=== PATIENT | male | born 1985 | race Caucasian/White ===

== ENCOUNTER 2020-09-21 14:11 | Emergency (ER) | payer MEDICAID ==
[~2020-09-21] VITALS: Ht 170.2 cm; Wt 86.2 kg
[2020-09-21 14:19] VITALS: BP 155/91
--- NOTE | 2020-09-21 14:24 | NUR ---
PATIENT AMBULATED TO BED 3 WITH STEADY GAIT.
--- NOTE | 2020-09-21 14:33 | NUR ---
34 Y/O MALE COMING FROM HOME WITH C/C RIGHT SIDED CHEST PAIN. PT PRESENTS A&OX4, ESTONIAN SPEAKING. PT STATES 7/10 PAIN TO HIS RIGHT CHEST AREA THAT BEGAN AT 0900 ON 09/21/20. PT STATES HE DID NOT TAKE ANY MEDICATION PRIOR TO ER VISIT. PT STATES ASSOCIATED SHORTNESS OF BREATH. PT DENIES DIZZINESS, HEADACHE, BLURRY VISION, RINGING OF THE EARS, ABDOMINAL PAIN, FEVER/CHILLS, COLD-LIKE SYMPTOMS. PT PLACED ONTO WARP HANGER. LUNG SOUNDS CTA, RESPIRATIONS EVEN/UNLABORED. VITAL SIGNS 153/77, HR 87, RR 18, SPO2 99% ON ROOM AIR. BED LOCKED IN LOWEST POSITION, SIDE RAILS X1. PMH/MEDS: DENIES NKA
[2020-09-21] MEDS ORDERED: KETOROLAC 60 MG/2 ML VIAL IM ONE (14:55)
--- NOTE | 2020-09-21 15:07 | NUR ---
EKG AT BEDSIDE
--- NOTE | 2020-09-21 15:12 | NUR ---
XRAY AT BEDSIDE
--- NOTE | 2020-09-21 15:39 | NUR ---
PT PRESENTS EYES OPEN IN SEMI-FOWLERS POSITION, POSITION OF COMFORT. PT STATES PAIN 2/10 AT THIS TIME. 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 RESP EVEN/UNLABORED. EQUAL CHEST RISE AND FALL. BED LOCKED IN LOWEST POSITION, SIDE RAILS X 1, CALL LIGHT IN REACH. ALL PT NEEDS MET AT THIS TIME.
--- NOTE | 2020-09-21 16:13 | NUR ---
PT PRESENTS EYES OPEN IN SEMI-FOWLERS POSITION, POSITION OF COMFORT. PT STATES PAIN 0/10 AT THIS TIME. BARREL COATER IN PLACE. RESP EVEN/UNLABORED. EQUAL CHEST RISE AND FALL. BED LOCKED IN LOWEST POSITION, SIDE RAILS X 1, CALL LIGHT IN REACH. ALL PT NEEDS MET AT THIS TIME.
[2020-09-21 16:25] VITALS: BP 122/62
--- NOTE | 2020-09-21 16:25 | NUR ---
Patient discharged with v/s stable. Written and verbal after care instructions given and explained. Patient alert, oriented and verbalized understanding of instructions. Ambulatory with steady gait. All questions addressed prior to discharge. ID band removed. Patient advised to follow up with PMD. Rx of FLEXERIL, NAPROSYN given. Patient educated on indication of medication including possible reaction and side effects. Opportunity to ask questions provided and answered.
== END 2020-09-21 16:25 | disposition home or self-care (01) ==
LOC: MED 14:11
DX: M94.0 Chondrocostal junction syndrome [Tietze] (principal)
CPT/HCPCS: 71045; 81002; 93005; 96372; 99283; J1885

== ENCOUNTER 2024-02-07 22:39 | Emergency (ER) | payer MEDICAID, OTHER ==
[~2024-02-07] VITALS: Ht 162.6 cm; Wt 91.6 kg
[2024-02-07 22:48] VITALS: BP 148/91; PULSE 78; RESP 16; TEMP 97.6; O2SAT 99
[2024-02-07 23:13] VITALS: BP 148/91; PULSE 78; RESP 16; TEMP 97.6; O2SAT 99
== END 2024-02-08 00:26 | disposition home or self-care (01) ==
LOC: MED 22:39
DX: M23.92 Unspecified internal derangement of left knee (principal); R03.0 Elevated blood-pressure reading, without diagnosis of hypertension
CPT/HCPCS: 73562; 99283